=== PATIENT | male | born 2000 | race Asian ===

== ENCOUNTER 2022-08-20 10:32 | Emergency (ER) | payer BC ==
[2022-08-20] MEDS ORDERED: Ketorolac 30 MG/ML SDV IVPUSH ONE (10:33)
[2022-08-20] MEDS ORDERED: Ondansetron 4 MG/2 ML SDV IVPUSH ONE (10:51)
[2022-08-20] MEDS ORDERED: diphenhydrAMINE 50 MG/ML SDV IVPUSH ONE (10:51)
[2022-08-20] MEDS ORDERED: Tamsulosin 0.4 MG Cap.ER PO ONE (10:51)
[2022-08-20] MEDS ORDERED: Orphenadrine 60 MG/2 ML Inj IV ONE (10:52)
[2022-08-20] MEDS ORDERED: Sodium Chloride 0.9% 1,000 ML IV SCH (11:00)
[2022-08-20 11:16] LABS: CHLORIDE,CL 103 mmol/L (98-107); ESTIMATED GFR 118 mL/min (>=60); SODIUM,NA 138 mmol/L (136-145)
[2022-08-20] MEDS ORDERED: Sodium Chloride 0.9% 10 ML Syringe FLUSH PRN (11:28)
== END 2022-08-20 14:00 | disposition home or self-care (01) ==
LOC: LL.ED 10:32
DX: M54.9 Dorsalgia, unspecified (principal); Z79.899 Other long term (current) drug therapy
CPT/HCPCS: 36415; 80048; 81003; 85025; 96361; 96374; 96375; 99283; 99284-25; A9270-GY; J1200; J1885; J2360; J2405; J3490; J7030

== ENCOUNTER 2022-08-24 11:35 | Emergency (ER) | payer BC ==
[2022-08-24] MEDS ORDERED: Ketorolac 30 MG/ML SDV IM ONE (12:05)
[2022-08-24 12:38] LABS: CORONAVIRUS COVID-19 NAA NEGATIVE (NEGATIVE); RESPIRATORY SYNCYTIAL VIR NAA NEGATIVE (NEGATIVE)
== END 2022-08-24 12:50 | disposition home or self-care (01) ==
LOC: LL.ED 11:35
DX: J02.9 Acute pharyngitis, unspecified (principal); Z20.822 Contact with and (suspected) exposure to COVID-19
CPT/HCPCS: 0241U; 96372; 99283; J1885

== ENCOUNTER 2023-07-21 04:36 | Emergency (ER) | payer BC ==
[2023-07-21] MEDS ORDERED: Sodium Chloride 0.9% 1,000 ML IV ONE ×2 (04:39→06:00)
[2023-07-21] MEDS ORDERED: Sodium Chloride 0.9% 10 ML Syringe FLUSH PRN (04:39)
[2023-07-21] MEDS ORDERED: Tamsulosin 0.4 MG Cap.ER PO ONE (04:40)
[2023-07-21] MEDS ORDERED: Ketorolac 15 MG/ML SDV IVPUSH ONE (04:40)
[2023-07-21] MEDS ORDERED: HYDROmorphone 0.5 MG/0.5 ML Syringe IVPUSH PRN (04:40)
[2023-07-21] MEDS ORDERED: Ondansetron 4 MG/2 ML SDV IVPUSH ONE (04:41)
[2023-07-21 04:47] LABS: BILIRUBIN,URINE NEGATIVE (NEGATIVE); COLOR,URINE DARK YELLOW; GLUCOSE,URINE NEGATIVE (NEGATIVE); KETONES,URINE NEGATIVE (NEGATIVE); LEUKOCYTE ESTERASE,URINE NEGATIVE (NEGATIVE); NITRITE,URINE NEGATIVE (NEGATIVE); OCCULT BLOOD,URINE LARGE (NEGATIVE); PROTEIN,URINE NEGATIVE (NEGATIVE); UROBILINOGEN,URINE 0.2 E.U./dL (0.2-1.0)
[2023-07-21 04:58] LABS: BASOPHILS ABSOLUTE AUTO 0.04 K/uL (0.00-0.20); BASOPHILS PERCENT AUTO 0.5 % (0.0-2.0); EOSINOPHILS ABSOLUTE AUTO 0.11 K/uL (0.00-0.50); EOSINOPHILS PERCENT AUTO 1.3 % (0.0-5.0); HEMATOCRIT 46.5 % (39.0-49.0); HEMOGLOBIN 15.7 g/dL (13.1-16.8); LYMPHOCYTES ABSOLUTE AUTO 2.17 K/uL (0.50-3.50); LYMPHOCYTES PERCENT AUTO 24.8 % (10.0-50.0); MEAN CORPUSCULAR HEMOGLOBIN 29.2 pg (28.2-33.3); MEAN CORPUSCULAR HGB CONC 33.8 g/dL (31.7-36.0); MEAN CORPUSCULAR VOLUME 86.6 fL (84.0-98.0); MONOCYTES ABSOLUTE AUTO 0.59 K/uL (0.00-1.00); MONOCYTES PERCENT AUTO 6.7 % (2.0-14.0); NEUTROPHILS ABSOLUTE AUTO 5.85 K/uL (1.40-7.00); NEUTROPHILS PERCENT AUTO 66.7 % (45.0-80.0); PLATELET COUNT,PLT 255 K/uL (150-350); RED BLOOD CELL COUNT 5.37 M/uL (4.33-5.41); RED CELL DISTRIBUTION WIDTH 12.9 % (11.2-14.1); WHITE BLOOD CELL COUNT,WBC 8.8 K/uL (4.0-10.2)
[2023-07-21 05:01] LABS: APPEARANCE,URINE CLOUDY; RBC,URINE 20-30 /HPF; WBC,URINE 0-5 /HPF
[2023-07-21 05:11] LABS: ALANINE AMINOTRANSFERASE,ALT 18 U/L (12-78); ALBUMIN 4.3 g/dL (3.4-5.0); ALKALINE PHOSPHATASE 61 IU/L (46-116); ANION GAP 9.8 meq/L (7-15); ASPARTATE AMNIOTRANSFERASE,AST 17 U/L (15-37); BILIRUBIN TOTAL 0.5 mg/dL (0.2-1.0); BLOOD UREA NITROGEN,BUN 16 mg/dL (7-18); CALCIUM 9.6 mg/dL (8.5-10.1); CARBON DIOXIDE,CO2 27.2 mmol/L (21.0-32.0); CHLORIDE,CL 102 mmol/L (98-107); CREATININE 0.92 mg/dL (0.51-1.17); ESTIMATED GFR 120 mL/min (>=60); GLUCOSE RANDOM 109 mg/dL (70-99); POTASSIUM,K 3.7 mmol/L (3.5-5.1); SODIUM,NA 139 mmol/L (136-145)
== END 2023-07-21 09:15 | disposition home or self-care (01) ==
LOC: LL.ED 04:36
DX: N13.2 Hydronephrosis with renal and ureteral calculous obstruction (principal)
CPT/HCPCS: 36415; 74176; 80053; 81001; 85025; 96361; 96374; 96375; 99284; 99284-25; A9270-GY; J1885; J2405; J3490; J7030

== ENCOUNTER 2025-01-25 08:30 | Emergency (ER) | payer BC ==
[2025-01-25 09:28] LABS: BASOPHILS ABSOLUTE AUTO 0.05 K/uL (0.00-0.20); BASOPHILS PERCENT AUTO 0.7 % (0.0-2.0); EOSINOPHILS ABSOLUTE AUTO 0.08 K/uL (0.00-0.50); EOSINOPHILS PERCENT AUTO 1.2 % (0.0-5.0); HEMATOCRIT 48.4 % (39.0-49.0); HEMOGLOBIN 16.4 g/dL (13.1-16.8); IMMATURE GRAN ABSOLUTE AUTO 0.02 10^3/uL (0.00-0.04); IMMATURE GRAN PERCENT AUTO 0.3 % (0.0-0.4); LYMPHOCYTES ABSOLUTE AUTO 1.22 K/uL (0.50-3.50); LYMPHOCYTES PERCENT AUTO 17.6 % (10.0-50.0); MEAN CORPUSCULAR HEMOGLOBIN 28.9 pg (28.2-33.3); MEAN CORPUSCULAR HGB CONC 33.9 g/dL (31.7-36.0); MEAN CORPUSCULAR VOLUME 85.4 fL (84.0-98.0); MONOCYTES ABSOLUTE AUTO 0.33 K/uL (0.00-1.00); MONOCYTES PERCENT AUTO 4.8 % (2.0-14.0); NEUTROPHILS ABSOLUTE AUTO 5.24 K/uL (1.40-7.00); NEUTROPHILS PERCENT AUTO 75.4 % (45.0-80.0); PLATELET COUNT,PLT 249 K/uL (150-350); RED BLOOD CELL COUNT 5.67 M/uL (4.33-5.41); RED CELL DISTRIBUTION WIDTH 12.1 % (11.2-14.1); WHITE BLOOD CELL COUNT,WBC 6.9 K/uL (4.0-10.2)
[2025-01-25 09:54] LABS: ALANINE AMINOTRANSFERASE,ALT 35 U/L (12-78); ALBUMIN 3.8 g/dL (3.4-5.0); ALKALINE PHOSPHATASE 65 IU/L (46-116); ANION GAP 5.6 meq/L (7-15); ASPARTATE AMNIOTRANSFERASE,AST 16 U/L (15-37); BILIRUBIN TOTAL 0.5 mg/dL (0.2-1.0); BLOOD UREA NITROGEN,BUN 10 mg/dL (7-18); CALCIUM 9.6 mg/dL (8.5-10.1); CARBON DIOXIDE,CO2 29.4 mmol/L (21.0-32.0); CHLORIDE,CL 103 mmol/L (98-107); CREATININE 0.93 mg/dL (0.51-1.17); ESTIMATED GFR 118 mL/min (>=60); GLUCOSE RANDOM 106 mg/dL (70-99); LIPASE 46 U/L (16-77); POTASSIUM,K 4.1 mmol/L (3.5-5.1); SODIUM,NA 138 mmol/L (136-145)
== END 2025-01-25 10:20 | disposition home or self-care (01) ==
LOC: LL.ED 08:30
DX: R07.9 Chest pain, unspecified (principal)
CPT/HCPCS: 36415; 80053; 83690; 84484; 85025; 93005; 93010; 99284; 99285